=== PATIENT | male | born 1950 | race Caucasian/White ===

== ENCOUNTER 2018-08-14 10:56 | Day surgery (SDC) | payer MEDICARE, MEDICAID ==
[~2018-08-14] VITALS: Ht 167.6 cm; Wt 73.6 kg
[~2018-08-14 10:56] MED LIST: GABA-532 PO; HYDR-4353 PO; TERA5CAP4 PO
[2018-08-14 11:10] VITALS: BP 159/84
[2018-08-14] MEDS ORDERED: TAMS0.4C32 PO (11:19)
[2018-08-14] MEDS ORDERED: OXYB5TAB11 PO (11:20)
[2018-08-14] MEDS ORDERED: MIDAZolam 5mg/5ml vial ONE (12:13)
[2018-08-14] MEDS ORDERED: fentaNYL/PF 50MCG/1 ML 2ML syringe ONE (12:13)
[2018-08-14] MEDS ORDERED: LIDOcaine Viscous 15ml cup ONE (12:14)
[2018-08-14 13:07] VITALS: BP 137/60
[2018-08-14 13:17] VITALS: BP 130/75
[2018-08-14 13:27] VITALS: BP 129/72
[2018-08-14 13:37] VITALS: BP 130/79
== END 2018-08-14 13:47 | disposition home or self-care (01) ==
LOC: GI LAB 10:56
PROVIDERS: ATTEND Internal Medicine Gastroenterology
DX: K29.50 Unspecified chronic gastritis without bleeding (principal); K44.9 Diaphragmatic hernia without obstruction or gangrene; K20.9 Esophagitis, unspecified; K22.70 Barrett's esophagus without dysplasia; F17.210 Nicotine dependence, cigarettes, uncomplicated; J44.9 Chronic obstructive pulmonary disease, unspecified; Z72.89 Other problems related to lifestyle; Z88.6 Allergy status to analgesic agent; Z85.038 Personal history of other malignant neoplasm of large intestine; Z92.3 Personal history of irradiation; Z90.49 Acquired absence of other specified parts of digestive tract; Z79.891 Long term (current) use of opiate analgesic; Z79.899 Other long term (current) drug therapy
CPT/HCPCS: 43239; G0500; J2250; J3010; J7030; 88305; 99152; A4620

== ENCOUNTER 2025-04-25 09:50 | Outpatient (CLI) | payer MEDICARE, MEDICAID ==
[~2025-04-25 09:50] MED LIST changes: +OXYB5TAB21 PO; +TAMS0.4C32 PO; -TERA5CAP4 PO
--- NOTE | 2025-04-25 12:25 | RADIOLOGY REPORT ---
EXAM: DI LUMBAR SPINE LIMITED HISTORY: WEAKNESS OF BOTH LOWER EXTREMITIES COMPARISON: None TECHNIQUE: AP and lateral views of the lumbar spine and spot lateral of the lumbosacral junction were performed. FINDINGS: No fracture or listhesis of the lumbar spine. There is moderate to advanced lower lumbar degenerativ e disc disease and facet arthropathy, greatest at L5-S1. There are thick atherosclerotic calcificati ons of the abdominal aorta and common iliac arteries. IMPRESSION: 1. Degenerative changes of the lumbar spine without evidence of fracture. If the patient complains of lower extremity radicular symptoms, consider follow-up noncontrast MRI of the lumbar spine for furth er evaluation of the exiting nerve roots. 2. Extensive atherosclerotic vascular disease.
--- NOTE | 2025-04-25 12:30 | RADIOLOGY REPORT ---
PROCEDURE: MR MRI HEAD INDICATION: HEADACHE, UNSPECIFIED EXAM DATE: 04/25/2025 10:30 AM COMPARISON: None TECHNIQUE: MRI of the brain without intravenous contrast. FINDINGS: Mild restricted diffusion in the right parietal white matter with associated FLAIR signal abnormality and without significant low ADC signal consistent with a subacute to chronic infarct. There is no evidence of acute intracranial hemorrhage, extra-axial collection, mass effect, midline s hift, herniation or hydrocephalus. Mild cerebral atrophy. Moderate changes of chronic microvascular ischemic disease. There are no signal abnormalities on the susceptibility weighted sequences. Right internal carotid artery flow void is absent consistent with occlusion. The visualized paranasal sinuses and mastoid air cells are clear. The surrounding soft tissues and o sseous structures are unremarkable. IMPRESSION: 1. 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 Clinical correlation and continued follow- up is recommended. 2. Mild cerebral atrophy. Moderate changes of chronic microvascular ischemic disease. 3. Occluded right internal carotid artery. Consider further evaluation with CT of the head and neck. 4. Urgent findings were conveyed to the referring physician by the [facility] Radiology client support consultant. HS:Y
== END 2025-04-25 23:59 | disposition home or self-care (01) ==
LOC: MRI02 09:50
PROVIDERS: ATTEND Family Medicine
DX: I67.82 Cerebral ischemia (principal); R29.898 Other symptoms and signs involving the musculoskeletal system; R51.9 Headache, unspecified; I65.21 Occlusion and stenosis of right carotid artery; G31.9 Degenerative disease of nervous system, unspecified; I25.10 Atherosclerotic heart disease of native coronary artery without angina pectoris; M47.816 Spondylosis without myelopathy or radiculopathy, lumbar region
CPT/HCPCS: 70551; 72100

== ENCOUNTER 2025-06-10 11:26 | Outpatient (CLI) | payer MEDICARE, MEDICAID ==
[2025-06-10 12:04] LABS: CREATININE 0.62 MG/DL (0.60-1.10); TOTAL CARBON DIOXIDE 27.1 MMOL/L (24-32); eGFR > 90 ML/MIN
--- NOTE | 2025-06-10 14:42 | RADIOLOGY REPORT ---
CT CTA NECK/HEAD INDICATION: OCCLUSION AND STENOSIS OF RIGHT CAROTID ARTERY EXAM DATE: 06/10/2025 01:49 PM COMPARISON: MR MRI HEAD on DOS: 04/25/25 RADIATION DOSE: CTDIvol: 14 mGy, DLP: 540 mGy*cm PROCEDURE: CT angiogram images were obtained of the head and neck. Coronal and sagittal reformatted i mages were created as well as 3D and/or MIP reconstructions. All CT scans at this medical facility are performed using dose modulation techniques as appropriate t o a performed exam including the following: Automated exposure control was utilized; adjustment of th e MA and/or KV according to patient size; and use of iterative reconstruction technique. FINDINGS: Head: On the CT angiographic images, the internal carotid arteries are normal in caliber from the skull bas e to their bifurcations. The anterior and middle cerebral arteries and their branches appear normal. The anterior communicating artery appears normal. The left posterior communicating artery is normal. The right posterior communicating artery is not well seen and may be absent or hypoplastic. The verte bral arteries are codominant. The vertebral, basilar, superior cerebellar, and posterior cerebral art eries are normal in caliber. No aneurysm, arteriovenous malformation, or stenosis is visible. Neck: 95% long segment stenosis of the right ICA. 65% stenosis of the proximal left ICA. The common c arotid, external carotid, and vertebral arteries are normal in caliber. The vertebral arteries are co dominant. The visualized intracranial arteries are normal. There is no evidence of contrast extravasa tion, filling defects, , or dissection. The pharynx and airway are normal. The thyroid, submandibular, and parotid glands appear normal. Mar re lung emphysema. No lymphadenopathy is seen. The visualized intracranial structures are unremarkabl e. 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 65% stenosis of the proximal left ICA. Otherwise no acute abnormal CT angiographic findings of the head without dissection or occlusion in the head.
== END 2025-06-10 23:59 | disposition home or self-care (01) ==
LOC: RAD 11:26
PROVIDERS: ATTEND Family Medicine
DX: I65.23 Occlusion and stenosis of bilateral carotid arteries (principal); R51.9 Headache, unspecified
CPT/HCPCS: 36415; 70496; 70498; 80053; Q9967

== ENCOUNTER 2025-06-23 18:45 | Emergency (ER) | payer MEDICARE, MEDICAID ==
--- NOTE | 2025-06-23 19:34 | ELECTROCARDIOGRAPH REPORT ---
[facility] Test Date: 2025-06-23 Test Time: 19:32:58 Pat Name: MAXIMUS BURNS Department: [facility]- Patient ID: [facility]-[id number] Room: Gender: M Process Engineering Intern: : 1950 Requested By: GLORIA GOMEZ Order Number: [id number] Reading MD: Measurements Intervals [place] Rate: 77 P: 70 TN: 186 QRS: 26 QRSD: 93 T: 50 QT: 377 QTc: 427 Interpretive Statements Sinus rhythm Atrial premature complexes Low voltage, precordial leads Please click the below link to view image of tracing.
[2025-06-23 19:38] LABS: MEAN PLATELET VOLUME 8.0 FL (7.4-10.4); RED CELL DISTRIBUTION WIDTH 14.2 % (11.5-14.5)
[2025-06-23 20:07] LABS: CREATININE 0.93 MG/DL (0.60-1.10); PRO BRAIN NATRIURETIC PEPTIDE 170 PG/ML (0-125); TOTAL CARBON DIOXIDE 24.3 MMOL/L (24-32); eGFR 80 ML/MIN
[2025-06-23 20:09] VITALS: TEMP 98
[2025-06-23] MEDS: normal saline 1000ml 1,000 ML IV ONE (20:23)
--- NOTE | 2025-06-23 20:28 | RADIOLOGY REPORT ---
EXAM: CT CT HEAD INDICATION: HEAD STRIKE, BLOOD THINNERS TECHNIQUE: CT of the head without intravenous contrast. Radiation Dose Information: CT Dose: CTDI volume is 60.92 mGy. Dose-length product is 1179.67 mGy*cm The dose indicators for CT are the volume Computed Tomography (CT) Dose Index (CTDIvol) and the Dose Length Product (DLP), and are measured in units of mGy and mGy-cm, respectively. These indicators are not patient dose, but values generated from the CT scanner acquisition factors. The report includes radiation exposure data for exposures received during this examination. COMPARISON: CT CTA NECK/HEAD on DOS: 06/10/25, MR MRI HEAD on DOS: 04/25/25 FINDINGS: Motion artifact degrades fine detail. No acute territorial infarct, intracranial hemorrhage, or mass effect. There are global involutional changes with compensatory prominence of the ventricles and sulci. Patchy periventricular and subcorti andre white matter hypoattenuation is nonspecific but may be related to small vessel ischemic disease. The orbits are normal. The paranasal sinuses and mastoid air cells are clear. Small right posterior s calp hematoma without underlying fracture. IMPRESSION: 1. No acute territorial infarct, intracranial hemorrhage, or mass effect. 2. Age-related involutional changes. Chronic microvascular changes. 3. Small right posterior scalp hematoma without underlying fracture.
--- NOTE | 2025-06-23 20:36 | RADIOLOGY REPORT ---
CLINICAL HISTORY: HEAD STRIKE, BLOOD THINNERS TECHNIQUE: CT exam of the cervical spine was performed without intravenous contrast. This exam was pe rformed according to our departmental dose optimization program. Up-to-date CT equipment and radiatio n dose reduction techniques are utilized as appropriate. CTDI 20.8 DLP 543.7 COMPARISON: CT CT HEAD on DOS: 06/23/25, CT CTA NECK/HEAD on DOS: 06/10/25 FINDINGS: The alignment of the cervical spine is normal. The vertebral body height and intervertebral disc spac es are maintained. The prevertebral space within normal limits. No acute fracture or dislocation is seen. There multi level degenerative changes of facet and uncovertebral hypertrophy as well posterior disc osteophyte complexes. Facet and uncovertebral hypertrophy result in moderate left C3-C4 nerve foramin al narrowing. IMPRESSION: No acute post-traumatic CT abnormality of the cervical spine.
--- NOTE | 2025-06-23 20:42 | Physician Documentation ---
History of Present Illness ~ Chief Complaint: Head Injury Stated Complaint: HEAD LAC Time Seen by MD: 20:33 OK to notify your PCP?: Yes Mode of Arrival: POV HPI Patient presents to the emergency room for evaluation after head strike. He is on blood thinners. Patient normally walks with a walker and his walker got caught on a rug while he was trying to walk causing him to fall striking the back of his head. No other injuries reported. Tetanus within 5 years?: No Medication Reconciliation Allergies: Coded Allergies: ibuprofen (Unverified Adverse Reaction, Unknown, hives, 06/16/15) Scheduled Gabapentin (Gabapentin), 1-2 CAP PO BID, (Reported) Oxybutynin Chloride (Oxybutynin Chloride), 1 TAB PO Q12H, (Reported) Tamsulosin Hcl (Tamsulosin Hcl), 1 CAP PO DAILY, (Reported) Miscellaneous Medications Hydrocodone Bit/Acetaminophen ([place] 10-325 Tablet), 1-2 TABLET PO, (Reported) Review of Systems ROS All review of systems negative except as per HPI Physical Exam Vital Signs: Temperature: 98.0, Source: Oral, Heart Rate: 73, Respiratory Rate: 16, BP: 104/55, Pulse Oximetry: 98 Physical Exam General: Patient is awake, alert, oriented x4 in no acute distress Head: Normocephalic and 3 cm full-thickness laceration to occiput. No active bleeding Eyes: Conjunctival normal. EOMI. PERRL. ENT: Mucous membranes moist. Neck: Supple, trachea is midline. Chest: Clear to auscultation bilaterally without rales, rhonchi, or wheezes. T here is no accessory muscle use or retractions. Cardiac: RRR without murmurs, gallops, or rubs. Extremities: Normal strength. Normal range of motion. No deformities or edema. Abrasion noted to dorsum of right thumb measuring 1 cm x 1 cm. No active bleedi ng Procedures Procedures Laceration repair: Patient's laceration was thoroughly cleaned and irrigated. Three juliet utilized to approximate 3 cm laceration to patient's accept bit with good approx imation of wound edges. Patient tolerated procedure well without complication. Total time of procedure 3 minutes. Progress Results/Orders Results/Orders Orders - MERVIN LR MD Ct Head (06/23/25 19:30) Ct Cervical Spine (06/23/25 19:30) Monitor (06/23/25 19:28) Saline Lock (06/23/25 19:28) Oxygen (06/23/25 19:28) Hs Troponin I W Calculations (06/23/25 21:28) Hs Troponin I W Calculations (06/23/25 22:28) Completed Orders - MERVIN LR MD Ct Head (06/23/25 19:30) Ct Cervical Spine (06/23/25 19:30) Cbc/Diff (06/23/25 19:28) BMP (06/23/25 19:28) PBNP (06/23/25 19:28) Electrocardiogram (06/23/25 19:28) Hs Troponin I W Calculations (06/23/25 19:) Normal Saline 1000ml (0.9% Sodium Chlori (06/23/25 20:05) Medications Received in ER Medications (Trade) Dose Ordered Sig/Jeny Route PRN Reason Start Time Stop Time Status Last Admin Dose Admin Sodium Chloride 1,000 ml @ 1,000 mls/hr ONCE ONCE IV 06/23/25 20:05 06/23/25 21:04 DC 06/23/25 20:23 1,000 MLS/HR Vital Signs 06/23/25 06/23/25 06/23/25 06/23/25 18:56 19:33 20:01 20:09 Temp 98.0 98.0 98.0 Pulse 106 79 73 Resp 16 17 15 16 B/P (MAP) 140/97 90/55 (67) 104/55 (71) Pulse Ox 96 96 98 Laboratory Tests Test 06/23/25 19:28 White Blood Count 7.9 Red Blood Count 3.63 L Hemoglobin 13.1 L Hematocrit 38.1 L Mean Corpuscular Volume 105.0 H Mean Corpuscular Hemoglobin 35.9 H Mean Corpuscular Hemoglobin Concent 34.2 Red Cell Distribution Width 14.2 Platelet Count 253 Mean Platelet Volume 8.0 Neutrophils (%) (Auto) 63.7 Lymphocytes (%) (Auto) 25.0 Monocytes (%) (Auto) 10.1 Eosinophils (%) (Auto) 0.7 Basophils (%) (Auto) 0.5 Neutrophils # (Auto) 5.0 Lymphocytes # (Auto) 2.0 Monocytes # (Auto) 0.8 Eosinophils # (Auto) 0.1 Basophils # (Auto) 0.0 CBC Comment Sodium Level 133 L Potassium Level 3.4 L Chloride Level 97 L Carbon Dioxide Level 24.3 Anion Gap 12 Blood Urea Nitrogen 5 L Creatinine 0.93 Estimated GFR/1.73 m2 80 BUN/Creatinine Ratio 5.4 L Glucose Level 127 H Calcium Level 8.3 L Troponin I High Sensitivity 5 Pro-B-Type Natriuretic Peptide 170 H Albumin 2.8 L Chemistry Comments Medical Decision Making Findings Patient presented to the emergency room with a fall on blood thinners with positive head strike. Differentials include but are not limited to epidural bleed, subdural bleed, intraparenchymal bleed, subarachnoid bleed, cervical fracture therefore emergent CT scans performed which were reassuring. Laceration repair performed. Labs reassuring for no major pathologic derangements. Mild hypokalemia he has been instructed to eat potassium rich fruits and next few days. Departure Disposition: 01 HOME / SELF CARE / HOMELESS Impression: Primary Impression: Laceration Discharge Instructions: Sutures, [place], or Adhesive Wound Closure, Easy-to- Read Additional Instructions: Have juliet removed in 7-10 days. Referrals: NO PRIMARY CARE PROVIDER (PCP) Signature Scribe Signature: No scribe Attestation: The note accurately reflects work and decisions made by me.Mervin Lr MD 06/23/25 21:07 MERVIN LR MD Jun 23, 2025 20:42
[2025-06-23 21:30] VITALS: BP 131/74; PULSE 77; RESP 16; O2SAT 96
== END 2025-06-23 21:31 | disposition home or self-care (01) ==
LOC: ER 18:46
DX: S01.01XA Laceration without foreign body of scalp, initial encounter (principal); R06.02 Shortness of breath; R51.9 Headache, unspecified; Z88.6 Allergy status to analgesic agent; W19.XXXA Unspecified fall, initial encounter; Y93.89 Activity, other specified; Y92.89 Other specified places as the place of occurrence of the external cause; Y99.8 Other external cause status
CPT/HCPCS: 12002; 36415; 70450; 72125; 80048; 83880; 84484; 85025; 93005; 99285; A6402; J7030; L0172; 96360; 99283; A6449

== ENCOUNTER 2025-09-02 10:56 | Outpatient (CLI) | payer MEDICARE, MEDICAID ==
--- NOTE | 2025-09-02 16:01 | RADIOLOGY REPORT ---
Indication: HX COLECTOMY,COLON CA,R/O STRICTURE Technique: CT axial images of the abdomen and pelvis are obtained without contrast. Coronal and sagittal reformats were obtained. Radiation Dose Information: CTDI volume is 13 mGy. Dose-length product is 628 mGy*cm Comparison: None FINDINGS: There is limited interpretation of the abdomen and pelvis without administration of intravenous contrast. Lung bases demonstrate atelectasis. 1.4 cm right adrenal adenoma. 1.2 cm left adrenal adenoma. Spleen atrophic. Pancreatic parenchymal calcifications. Cholelithiasis. Liver unremarkable in shape. No hydronephrosis. No nephrolithiasis. Stomach is relatively nondistended. Small bowel loops are normal in caliber. Moderate volume stool in the colon. The oral contrast reaches the splenic flexure of the colon. There is focal narrowing of the sigmoid colon however the enteric contrast has not reached this region Abdominal aortic atherosclerotic disease. Bladder distended. Bladder calculus 1.1 cm. No free pelvic fluid. No inguinal lymphadenopathy. Lzex-jx-ihlejois bilateral sacroiliac degenerative joint disease. Old right rib fractures. Moderate thoracolumbar degenerative disc disease. IMPRESSION: Limited evaluation without contrast. Enteric contrast reaches the flexure of the colon. No evidence for high-grade stricture within the ascending and transverse colon. Focal narrowing of the sigmoid colon, axial image 67 which can be secondary to stricture/ malignancy, bowel peristalsis. Follow-up CT abdomen pelvis in 3-4 hours can be obtained to evaluate the progression of contrast large bowel. Small bowel loops normal in caliber. Bilateral adrenal adenomas. Cholelithiasis. 1.1 cm bladder calculus. Other findings as described.
== END 2025-09-02 23:59 | disposition home or self-care (01) ==
LOC: RAD 10:56
PROVIDERS: ATTEND Family Medicine
DX: K80.20 Calculus of gallbladder without cholecystitis without obstruction (principal); Z03.89 Encounter for observation for other suspected diseases and conditions ruled out; J98.11 Atelectasis; D35.02 Benign neoplasm of left adrenal gland; D35.01 Benign neoplasm of right adrenal gland; D73.0 Hyposplenism; I70.0 Atherosclerosis of aorta; N32.89 Other specified disorders of bladder; N21.0 Calculus in bladder; M46.1 Sacroiliitis, not elsewhere classified; M51.34 Other intervertebral disc degeneration, thoracic region
CPT/HCPCS: 74176